=== PATIENT | male | born 1990 | race Caucasian/White ===

== ENCOUNTER 2024-10-16 07:49 | Emergency (ER) | payer SELFPAY ==
[~2024-10-16] VITALS: Ht 170.2 cm; Wt 63.5 kg
[2024-10-16 08:57] LABS: PLATELET COUNT (AUTO) 212 K/uL (150-450); RED BLOOD CELL COUNT(AUTO) 5.03 MIL/uL (4.5-6.0); RED CELL DISTRIBUTION WIDTH 13.0 % (11.5-15.0); WHITE BLOOD COUNT (AUTO) 8.3 K/uL (4.3-11.0)
[2024-10-16 09:05] LABS: CALCIUM, SERUM 9.2 mg/dL (8.5-10.1); CREATININE 1.0 mg/dL (0.6-1.3); SODIUM SERUM 143.0 mmol/L (136-145); UREA NITROGEN, BLOOD 9.0 mg/dL (7-18)
[2024-10-16] MEDS ORDERED: IOHEXOL-300 100 ML VIAL IV ONE (09:28)
[2024-10-16] MEDS ORDERED: CT SWABBABLE VALVE TRANS SET 1 EA INFUS.SET MC ONE (09:28)
[2024-10-16] MEDS ORDERED: IV NS 0.9% 250 ML IV ONE (09:28)
[2024-10-16] MEDS ORDERED: KETOROLAC TROMETHAMINE 15 MG/ML VIAL ONE (11:16)
[2024-10-16] MEDS: KETOROLAC TROMETHAMINE 15 MG/ML VIAL IV ONE (11:22)
[2024-10-16] MEDS ORDERED: CLIN300C12 PO (13:37)
[2024-10-16] MEDS ORDERED: IBUP-1490 PO (13:37)
[2024-10-16] MEDS ORDERED: MORPHINE SULFATE INJ 4 MG/ML DISP.SYRIN ONE (13:48)
[2024-10-16] MEDS ORDERED: ONDANSETRON HCL/PF 4 MG/2 ML VIAL ONE (13:48)
[2024-10-16] MEDS: CLINDAMYCIN 600 MG in IV D5W 100 ML IV ONE (13:58)
[2024-10-16] MEDS: ONDANSETRON HCL/PF - ER 4 MG/2 ML VIAL IV ONE (14:01)
[2024-10-16] MEDS: MORPHINE SULFATE INJ 2 MG/ML DISP.SYRIN IV ONE (14:02)
[2024-10-16 15:17] VITALS: BP 130/86; TEMP 98.5; O2SAT 98
== END 2024-10-16 15:18 | disposition home or self-care (01) ==
LOC: ER 07:58
DX: L02.01 Cutaneous abscess of face (principal); K02.9 Dental caries, unspecified; I25.2 Old myocardial infarction; Z91.013 Allergy to seafood
CPT/HCPCS: 99285; 10160; 96365; 70487; 96375; 85025; 80048; 36415; J1885; J3490; J2270; J2405 ×2; J7060; J7030; J7050; Q9967